=== PATIENT | female | born 1980 | race Hispanic/Latino ===

== ENCOUNTER 2020-01-21 22:36 | Emergency (ER) | payer OTHER ==
[~2020-01-21] VITALS: Ht 162.6 cm; Wt 104.3 kg
[2020-01-21] MEDS ORDERED: CLONIDINE HCL 0.1 MG TAB PO ONE (23:30)
--- NOTE | 2020-01-21 23:33 | Emergency Department Note ---
History of Present Illnes History of Present Illness Chief Complaint: Hypertension History of Present Illness This is a 39 year old female presents to the ED for fever, sorethroat, and elevated blood pressure of one day duration . Historian: Patient Arrival Mode: Car Onset (how long ago): day(s) (2) Location: generalized Radiation: Reports non-radiation Severity: moderate Onset quality: gradual Duration (how long): day(s) Timing of current episode: constant Progression: worsening Chronicity: new Relieving factors: none Exacerbating factors: none Associated symptoms: Reports fever/chills Treatments prior to arrival: none Past Medical/Family History Physician Review I have reviewed the patient's past medical and family history. Any updates have been documented here. Past Medical History Recent Fever: Yes (SUBJECTIVE) Clinical Suspicion of Infectio: No New/Unexplained Change in Ment: No Past Medical History: Hypertension, CVA, Migraines, Anxiety, Depression Other Medical History: RT SIDED HEMIPARESIS Past Surgical History: Cholecysctectomy Social History Smoking Cessation: Never Smoker Alcohol Use: None Any Illegal Drug Use: No Other Last Tetanus: UTD Review of Systems Review of Systems Constitutional: Reports fever EENTM: Reports throat pain Cardiovascular: Reports no symptoms Respiratory: Reports no symptoms Gastrointestinal: Reports no symptoms Genitourinary: Reports no symptoms Musculoskeletal: Reports no symptoms Integumentary: Reports no symptoms Neurological: Reports no symptoms Psychological: Reports no symptoms Endocrine: Reports no symptoms Hematological/Lymphatic: Reports no symptoms Physical Exam Related Data Allergies: Coded Allergies: No Known Allergies (Unverified , 01/21/20) Triage Vital Signs Vital Signs Date Time Temp Pulse Resp B/P (MAP) Pulse Ox O2 Delivery O2 Flow Rate FiO2 01/21/20 23:20 98.9 89 20 223/106 99 Vital signs reviewed: Yes Physical Exam CONSTITUTIONAL Constitutional: Present well-developed, Present well-nourished HENT HENT: Present normocephalic, Present atraumatic, Present oropharynx clear/moist, Present nose normal HENT L/R: Present left ext ear normal, Present right ext ear normal EYES Eyes: Reports PERRL, Reports conjunctivae normal NECK Neck: Present ROM normal PULMONARY Pulmonary: Present effort normal, Present breath sounds normal CARDIOVASCULAR Cardiovascular: Present regular rhythm, Present heart sounds normal, Present capillary refill normal, Present normal rate GASTROINTESTINAL Abdominal: Present soft, Present nontender, Present bowel sounds normal GENITOURINARY Genitourinary: Present exam deferred SKIN Skin: Present warm, Present dry MUSCULOSKELETAL Musculoskeletal: Present ROM normal NEUROLOGICAL Neurological: Present alert, Present oriented x 3, Present no gross motor or sensory deficits PSYCHOLOGICAL Psychological: Present mood/affect normal, Present judgement normal Results Laboratory Laboratory Laboratory Tests Test 01/21/20 23:55 Influenza Virus Types A,B Antigen Negative (NEGATIVE) Group A Streptococcus Screen Negative (NEGATIVE) Lab results reviewed: Yes Imaging Imaging results reviewed: Yes Impressions [place] [id number] Patient Name: ELIESER GO MR #: [id number] : 1980 Age/Sex: 39/F Req #: [id number] Adm Physician: Ordered by: RUSS OSWALD DO Report #: [id number] Location: ER Room/Bed: Procedure: [id number] CT/CT BRAIN WO Exam Date: Exam Time: REPORT STATUS: Signed History: Headache Comparison studies: None Technique: Axial images were obtained from the skull base to the vertex. Coronal and sagittal reconstructions obtained from the axial data. Dose modulation, iterative reconstruction, and/or weight based adjustment of the mA/kV was utilized to reduce the radiation dose to as low as reasonably achievable. Findings: Metallic piercing at the right ear, creates beam hardening artifact, limiting evaluation. Scalp/skull: No abnormalities. No fractures, blastic or lytic lesions. Extra-axial spaces: No masses. No fluid collections. Brain sulci: Appropriate for age. Ventricles: Normal in size and configuration. No hydrocephalus. Parenchyma: No abnormal densities. No masses, hemorrhage, acute or chronic cortical vascular insults. Sellar/suprasellar region: No abnormalities Craniocervical junction: Patent foramen magnum. No Chiari one malformation. IMPRESSION: No abnormalities . Signed by: DR Desmond Rivera M.D. on 01/22/2020 12:57 AM Dictated By: DESMOND FLORES MD Transcribed By: DIONNA on 01/22/2056 COPY TO: RUSS OSWALD DO~ [place] [id number] Patient Name: ELIESER GO MR #: [id number] : 1980 Age/Sex: 39/F Req #: [id number] Adm Physician: Ordered by: RUSS OSWALD DO Report #: [id number] Location: ER Room/Bed: ___ Procedure: [id number] DX/CHEST SINGLE (PORTABLE) Exam Date: Exam Time: REPORT STATUS: Signed EXAMINATION: CHEST SINGLE (PORTABLE) INDICATION: Cough, fever, sore throat COMPARISON: None FINDINGS: TUBES and LINES: None. LUNGS: Normal lung volumes. Lungs are clear. No consolidations. PLEURA: No pleural effusion or pneumothorax. HEART AND MEDIASTINUM: The cardiomediastinal silhouette is unremarkable. BONES AND SOFT TISSUES: No acute osseous lesion. Soft tissues are unremarkable. UPPER ABDOMEN: No free air under the diaphragm. IMPRESSION: No acute thoracic radiographic abnormality. Signed by: Dre Gutierrez DO on 01/22/2020 1:51 AM Dictated By: DRE GUTIERREZ DO 0 Transcribed By: DIONNA on 01/22/20150 COPY TO: RUSS OSWALD DO~ Assessment & Plan Medical Decision Making MDM 39 yof with sore throat, myalgias with elevated BP. Patient with PMH of CVA. CT of the brain neg for brain bleed. strep and influenza negative. COVID test pending. Patient well appearing and non-toxic . Rx azithromycin and albuterol Assessment & Plan Final Impression: (1) Elevated blood pressure reading (2) Upper respiratory infection Depart Disposition: HOME, SELF-CARE Last Vital Signs Date Time Temp Pulse Resp B/P (MAP) Pulse Ox O2 Delivery O2 Flow Rate FiO2 01/21/20 23:20 98.9 89 20 223/106 99 Medications in the ED Clonidine HCl 0.1 mg ONCE ONCE PO ; Start 01/21/20 at 23:30; Stop 01/21/20 at 23:31; Status UNV RUSS OSWALD DO Jan 21, 2020 23:33
[2020-01-22 00:49] LABS: INFLUENZAE A&B ANTIGEN (RAPID) NEGATIVE (NEGATIVE); STREPTOCOCCUS GRP A ANTIGEN NEGATIVE (NEGATIVE)
--- NOTE | 2020-01-22 01:00 | Diagnostic Imaging Report ---
History: Headache Comparison studies: None Technique: Axial images were obtained from the skull base to the vertex. Coronal and sagittal reconstructions obtained from the axial data. Dose modulation, iterative reconstruction, and/or weight based adjustment of the mA/kV was utilized to reduce the radiation dose to as low as reasonably achievable. Findings: Metallic piercing at the right ear, creates beam hardening artifact, limiting evaluation. Scalp/skull: No abnormalities. No fractures, blastic or lytic lesions. Extra-axial spaces: No masses. No fluid collections. Brain sulci: Appropriate for age. Ventricles: Normal in size and configuration. No hydrocephalus. Parenchyma: No abnormal densities. No masses, hemorrhage, acute or chronic cortical vascular insults. Sellar/suprasellar region: No abnormalities Craniocervical junction: Patent foramen magnum. No Chiari one malformation. IMPRESSION: No abnormalities . Signed by: DR Desmond Rivera M.D. on 01/22/2020 12:57 AM
--- NOTE | 2020-01-22 01:54 | Diagnostic Imaging Report ---
EXAMINATION: CHEST SINGLE (PORTABLE) INDICATION: Cough, fever, sore throat COMPARISON: None FINDINGS: TUBES and LINES: None. LUNGS: Normal lung volumes. Lungs are clear. No consolidations. PLEURA: No pleural effusion or pneumothorax. HEART AND MEDIASTINUM: The cardiomediastinal silhouette is unremarkable. BONES AND SOFT TISSUES: No acute osseous lesion. Soft tissues are unremarkable. UPPER ABDOMEN: No free air under the diaphragm. IMPRESSION: No acute thoracic radiographic abnormality. Signed by: Dre Gutierrez DO on 01/22/2020 1:51 AM
== END 2020-01-22 02:10 | disposition home or self-care (01) ==
LOC: ER 22:36
DX: R50.9 Fever, unspecified (principal); U07.1 COVID-19; J06.9 Acute upper respiratory infection, unspecified; I10 Essential (primary) hypertension; F41.9 Anxiety disorder, unspecified; I69.951 Hemiplegia and hemiparesis following unspecified cerebrovascular disease affecting right dominant side
CPT/HCPCS: 70450; 71045; 83518; 87070; 87400; 87635; 99284

== ENCOUNTER 2020-01-31 07:51 | Emergency (ER) | payer SELFPAY ==
[~2020-01-31] VITALS: Ht 165.1 cm; Wt 81.6 kg
[2020-01-31] MEDS ORDERED: PROMETHAZINE HCL 25 MG TAB PO ONE (08:15)
[2020-01-31] MEDS ORDERED: HYDRALAZINE HCL 25 MG TAB PO ONE (08:15)
[2020-01-31] MEDS ORDERED: ONDANSETRON HCL 4 MG ORAL DISINTEGRATING TAB PO ONE (08:15)
[2020-01-31] MEDS ORDERED: PROMETHAZINE HCL (IM) 25 MG/ML VIAL IM ONE (08:45)
--- NOTE | 2020-01-31 09:41 | NUR ---
client has not vomited in the last 40 mins. states that she feels better, was able to tolerate and jeep down bp meds.
--- NOTE | 2020-01-31 09:57 | Emergency Department Note ---
History of Present Illnes History of Present Illness Chief Complaint: General Medicine Complaints History of Present Illness This is a 39 year old female +COVID AT OUTSIDE LAB 01/21/20, HERE FOR NAUSEA AND VOMITING WELL DIARRHEA. REPORTS HISTORY OF HIGH BLOOD PRESSURE. REPORTS ABD CRAMPING PRIOR TO GOING TO THE RESTROOM. Historian: Patient Arrival Mode: Car Teacher Public Health Required: No Onset (how long ago): day(s) (4) Location: N/V/D Radiation: Reports non-radiation Severity: moderate Onset quality: gradual Timing of current episode: intermittent Progression: waxing and waning Chronicity: new Context: Reports recent illness Relieving factors: none Exacerbating factors: none Associated symptoms: Reports cough (MILD NON-PRODUCTIVE, IMPROVING), Reports malaise, Reports nausea/vomiting; Denies chest pain Treatments prior to arrival: none Past Medical/Family History Physician Review I have reviewed the patient's past medical and family history. Any updates have been documented here. Past Medical History Recent Fever: Yes Clinical Suspicion of Infectio: Yes New/Unexplained Change in Ment: No Past Medical History: Hypertension, CVA, Migraines Other Medical History: RT SIDED HEMIPARESIS Past Surgical History: Cholecysctectomy Social History Smoking Cessation: Current some day smoker Counseling Performed: No Alcohol Use: Occasional Any Illegal Drug Use: No TB Exposure/Symptoms: No Physically hurt or threatened: No Other Last Tetanus: UTD Any Pre-Existing Lines (PICC,: No Is patient up to date on immun: No Last Flu: unk Last Pneumovax: unk Review of Systems Review of Systems Constitutional: Reports as per HPI EENTM: Reports no symptoms Cardiovascular: Reports no symptoms Respiratory: Reports as per HPI Gastrointestinal: Reports as per HPI Genitourinary: Reports no symptoms Musculoskeletal: Reports no symptoms Integumentary: Reports no symptoms Neurological: Reports no symptoms Psychological: Reports no symptoms Endocrine: Reports no symptoms Hematological/Lymphatic: Reports no symptoms Physical Exam Related Data Allergies: Coded Allergies: No Known Allergies (Unverified , 01/21/20) Triage Vital Signs Vital Signs Date Time Temp Pulse Resp B/P (MAP) Pulse Ox O2 Delivery O2 Flow Rate FiO2 01/31/20 08:03 97.9 81 16 204/102 98 Vital signs reviewed: Yes Physical Exam CONSTITUTIONAL Constitutional: Present well-developed, Present well-nourished HENT HENT: Present normocephalic, Present atraumatic, Present oropharynx landry ar/moist, Present nose normal HENT L/R: Present left ext ear normal, Present right ext ear normal EYES Eyes: Reports PERRL, Reports conjunctivae normal NECK Neck: Present ROM normal PULMONARY Pulmonary: Present effort normal, Present breath sounds normal CARDIOVASCULAR Cardiovascular: Present regular rhythm, Present heart sounds normal, Present capillary refill normal, Present normal rate GASTROINTESTINAL Abdominal: Present soft, Present nontender, Present bowel sounds normal; Absent tender, Absent guarding, Absent rebound GENITOURINARY Genitourinary: Present exam deferred SKIN Skin: Present warm, Present dry MUSCULOSKELETAL Musculoskeletal: Present ROM normal NEUROLOGICAL Neurological: Present alert, Present oriented x 3, Present no gross motor or sensory deficits PSYCHOLOGICAL Psychological: Present mood/affect normal, Present judgement normal Assessment & Plan Medical Decision Making MDM PT WITH COVID, GOOD O2 SAT, C/O N/V/D, NORMAL HR, ELEV BP DUE TO UNABLE TO KEEP MEDS DOWN - IMPROVED WITH PHENERGAN IM, ZOFRAN ODT, HYDRALAZINE 25 PO Reassessment Reassessment FEELS IMPROVED, WANTS TO GO HOME. ADVISED SELF-QUARANTINE, INCR PO FLUIDS, RX FOR PHENERGAN PO & SUPP [place], ZOFRAN ODT Assessment & Plan Final Impression: (1) Vomiting and diarrhea (2) COVID-19 Depart Disposition: HOME, SELF-CARE Last Vital Signs Date Time Temp Pulse Resp B/P (MAP) Pulse Ox O2 Delivery O2 Flow Rate FiO2 01/31/20 09:41 78 18 180/108 97 01/31/20 08:03 97.9 Medications in the ED Promethazine HCl 25 mg NOW ONCE PO Last administered on 01/31/20at 08:33; Admin Dose 25 MG; Start 01/31/20 at 08:15; Stop 01/31/20 at 08:16; Status DC Ondansetron HCl 4 mg ONCE ONCE PO Last administered on 01/31/20at 08:33; Admin Dose 4 MG; Start 01/31/20 at 08:15; Stop 01/31/20 at 08:16; Status DC Hydralazine HCl 25 mg ONCE ONCE PO Last administered on 01/31/20at 09:19; Admin Dose 25 MG; Start 01/31/20 at 08:15; Stop 01/31/20 at 08:16; Status DC Promethazine HCl 25 mg ONCE ONCE IM Last administered on 01/31/20at 08:51; Admin Dose 25 MG; Start 01/31/20 at 08:45; Stop 01/31/20 at 09:05; Status DC KATHY SCHROEDER MD Jan 31, 2020 09:57
== END 2020-01-31 09:48 | disposition home or self-care (01) ==
LOC: ER 07:51
DX: U07.1 COVID-19 (principal); R11.2 Nausea with vomiting, unspecified; R19.7 Diarrhea, unspecified; I10 Essential (primary) hypertension; I69.351 Hemiplegia and hemiparesis following cerebral infarction affecting right dominant side; F17.210 Nicotine dependence, cigarettes, uncomplicated
CPT/HCPCS: 99282; J2550; Q0162